=== PATIENT | female | born 1990 | race Native Hawaiian/Other Pacific Islander ===

== ENCOUNTER 2017-12-18 11:27 | Emergency (ER) | payer OTHER ==
[2017-12-18 11:38] VITALS: TEMP 97.9; O2SAT 100
[2017-12-18 12:27] LABS: HCG,QUALITATIVE URINE POSITIVE (NEGATIVE)
[2017-12-18 12:30] LABS: SQUAMOUS EPITHIAL 1 /hpf (0-5); URINE BILIRUBIN NEGATIVE (NEGATIVE); URINE BLOOD 1+ (NEGATIVE); URINE CLARITY Clear (Clear); URINE COLOR Colorless (YELLOW); URINE GLUCOSE (UA) NORMAL (Normal); URINE LEUKOCYTE ESTERASE NEG Leu/uL (Negative); URINE NITRATE NEGATIVE (NEGATIVE); URINE PROTEIN NEGATIVE (NEGATIVE); URINE UROBILINOGEN NORMAL mg/dL (0.2-1.0)
[2017-12-18 13:13] LABS: BASO # 0.1 K/uL (0.0-0.2); BASO % 0.6 % (0.0-2.0); EOS # 0.2 K/uL (0.0-0.7); HEMOGLOBIN 12.8 g/dL (11.0-16.0); LYMPH # 2.3 K/uL (1.0-4.3); LYMPH % 22.9 % (20.0-40.0); MEAN CELL VOLUME 85.1 fL (81.0-99.0); MEAN CORPUSCULAR HEMOGLOBIN 28.9 pg (27.0-31.0); MEAN CORPUSCULAR HGB CONC 33.9 g/dL (33.0-37.0); MEAN PLATELET VOLUME 9.1 fL (7.2-11.7); MONO # 0.7 K/uL (0.0-0.8); MONO % 6.7 % (0.0-10.0); NEUT # 6.8 K/uL (1.8-7.0); NEUT % 67.8 % (50.0-75.0); RBC 4.45 Mil/uL (3.80-5.20); RED CELL DISTRIBUTION WIDTH 13.6 % (11.5-14.5)
[2017-12-18 13:27] LABS: PROTHROMBIN TIME 11.4 SECONDS (9.7-12.2)
[2017-12-18 13:40] LABS: ALB/GLOB RATIO 1.1 (1.0-2.1); ALBUMIN 3.8 g/dL (3.5-5.0); ALT/SGPT 21 U/L (9-52); AST/SGOT 19 U/L (14-36); BLOOD UREA NITROGEN 7 mg/dL (7-17); CALCIUM 8.9 mg/dl (8.6-10.4); GFR AFRICAN-AMERICAN > 60; GFR NON-AFRICAN AMERICAN > 60
--- NOTE | 2017-12-18 14:03 | US ---
PROCEDURE: OB Pelvic Ultrasound HISTORY: , bleeding LMP: 10/13/2017 COMPARISON: None available. FINDINGS: UTERUS: Gestational sac: Single intrauterine gestation. Measures 3.8 cm compatible with estimated gestational age of 9 weeks, 0 days Yolk sac: Not visualized pole: [place]-rump length measures 2.4 cm compatible with estimated gestational age of 9 weeks, 1 day Heart rate: 163 bpm. age (Ultrasound estimated): 9 weeks, 1 day Dawn-gestational hemorrhage: None. Date of delivery (Ultrasound estimated) : 07/22/2018 Uterus measures 11.7 x 5.5 x 7.5 cm. Normal in size and appearance. CERVIX: Measures 3.6 cm. Long and closed. No cervical abnormality seen. RIGHT OVARY: Measures 4.7 x 2.1 x 2.9 cm. No mass lesion. Normal flow. LEFT OVARY: Measures 3.5 x 1.9 x 3.0 cm. No solid mass. Normal flow. FREE FLUID: None. OTHER FINDINGS: None. IMPRESSION: Single viable intrauterine gestation with average ultrasound age of 9 weeks, 1 day. heart rate 163 beats per minute. Cervix long and closed.
--- NOTE | 2017-12-18 14:05 | C.PDOC ---
History Of Present Illness 27 yr old female presents to the ER with complaints of vaginal bleeding and mild pain since morning. Patient states she us 7 weeks by date, 1st , desirable. Patient denies trauma,strenuous exercise, fever, nausea, vomiting, diarrhea, dysuria, weakness or numbness. Time Seen by Provider: 12/18/17 12:02 Chief Complaint (Nursing): Female Genitourinary History Per: Patient History/Exam Limitations: no limitations Onset/Duration Of Symptoms: Sudden Onset (since morning) Past Medical History Reviewed: Historical Data, Nursing Documentation, Vital Signs Vital Signs: Last Vital Signs Temp 97.9 F 12/18/17 11:36 Pulse 83 12/18/17 11:36 Resp 18 12/18/17 11:36 BP 116/75 12/18/17 11:36 Pulse Ox 100 12/18/17 14:11 Family History: States: No Known Family Hx - Social History Hx Alcohol Use: No Hx Substance Use: No - Immunization History Hx Tetanus Toxoid Vaccination: No Hx Influenza Vaccination: No Hx Pneumococcal Vaccination: No Review Of Systems Except As Marked, All Systems Reviewed And Found Negative. Constitutional: Negative for: Fever Gastrointestinal: Positive for: Abdominal Pain. Negative for: Nausea, Vomiting , Diarrhea Genitourinary: Positive for: Vaginal Bleeding. Negative for: Dysuria Neurological: Negative for: Weakness, Numbness Physical Exam - Physical Exam Appears: Non-toxic, No Acute Distress Skin: Warm, Dry Oral Mucosa: Moist Respiratory: Normal Breath Sounds, No Rales, No Rhonchi, No Stridor, No Wheezing Gastrointestinal/Abdominal: Soft, Tenderness (mild suprapubic tenderness), No Guarding, No Rebound Back: No CVA Tenderness Extremity: Normal ROM, No Swelling Neurological/Psych: Oriented x3, Normal Speech ED Course And Treatment - Laboratory Results Result Diagrams: 12/18/17 13:02 12/18/17 13:02 O2 Sat by Pulse Oximetry: 100 (RA) Pulse Ox Interpretation: Normal - CT Scan/US US - 1st Trimester Other Rad Studies (CT/US): Read By Radiologist, Radiology Report Reviewed CT/US Interpretation: PROCEDURE: OB Pelvic Ultrasound. HISTORY: , bleeding. LMP: 10/13/2017. COMPARISON: None available. FINDINGS: UTERUS: Gestational sac: Single intrauterine gestation. Measures 3.8 cm compatible with estimated gestational age of 9 weeks, 0 days. Yolk sac: Not visualized. pole: [place]-rump length measures 2.4 cm compatible with estimated gestational age of 9 weeks, 1 day. Heart rate: 163 bpm. age (Ultrasound estimated): 9 weeks, 1 day. Dawn-gestational hemorrhage: None. Date of delivery (Ultrasound estimated) : 07/22/2018. Uterus measures 11.7 x 5.5 x 7.5 cm. Normal in size and appearance. CERVIX: Measures 3.6 cm. Long and closed. No cervical abnormality seen. RIGHT OVARY: Measures 4.7 x 2.1 x 2.9 cm. No mass lesion. Normal flow. LEFT OVARY: Measures 3.5 x 1.9 x 3.0 cm. No solid mass. Normal flow. FREE FLUID: None. OTHER FINDINGS: None. IMPRESSION: Single viable intrauterine gestation with average ultrasound age of 9 weeks, 1 day. heart rate 163 beats per minute. Cervix long and closed. Medical Decision Making Medical Decision Making: PLAN: * US - 1st Trimester * Labs * BETA Quant * Urinalysis Disposition - Disposition Referrals: [facility] [Outside] [facility] [Outside] [facility] [Outside] Disposition: HOME/ ROUTINE Disposition Time: 15:19 Condition: STABLE Additional Instructions: Follow up with PMD within 1-2 days. Return to ED if feel worse. 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 - Scribe Statement The provider has reviewed the documentation as recorded by the Scribe Erica Escalante All medical record entries made by the Scribe were at my direction and personally dictated by me. I have reviewed the chart and agree that the record accurately reflects my personal performance of the history, physical exam, medical decision making, and the department course for this patient. I have also personally directed, reviewed, and agree with the discharge instructions and disposition.
[2017-12-18 15:33] VITALS: BP 130/62; PULSE 75; RESP 20
== END 2017-12-18 15:32 | disposition home or self-care (01) ==
LOC: C.ER 11:27
DX: O20.0 Threatened abortion (principal); Z3A.09 9 weeks gestation of pregnancy